=== PATIENT | female | born 1990 | race Caucasian/White ===

== ENCOUNTER 2017-10-14 07:00 | Inpatient (IN) | payer OTHER ==
[~2017-10-14] VITALS: Ht 160 cm; Wt 13.2 kg
[~2017-10-14 07:00] MED LIST: LOSARTAN POTASS25 M1 PO; METFORMIN HCL1000 M1 PO; ROBITUSSIN W/CO10 ML PO; SUPER B COMPLE150 MG; SYNTHROID50 MCG PO; VITAMIN D400 UNI1; ZITHROMAX Z-PA250 M1 PO
[2017-12-04] MEDS ORDERED: VITAMIN D250000 UNIT PO (11:22)
[2017-12-04] MEDS ORDERED: LEXAPRO10 M1 PO (11:23)
--- NOTE | 2017-12-09 14:16 | Admission Core Measures ---
Acute Coronary Syndrome (CM) ACS Core Measures Acute Coronary Syndrome Diagnosis No Congestive Heart Failure (NEW) CHF Core Measures Congestive Heart Failure Diagnosis No Cerebrovascular Accident CVA Core Measures CVA/TIA Diagnosis No Venous Thromboembolism VTE Core Kendall (View Protocol) VTE Risk Factors Surgery No Mechanical VTE Prophylaxis d/t N/A MechProphylax Ordered No VTE Pharm Prophylaxis d/t NA PharmProphylax ordered Problem List As ranked by this Provider includes Assessment & Plan 1. S/P laparoscopic sleeve gastrectomy 2. Hypothyroidism 3. Hypertension 4. Diabetes 5. Morbid obesity HOME MEDS Home Med List Ergocalciferol (Vitamin D2) (Vitamin D2) 50,000 UNIT CAPSULE 1 CAP PO QW SUPPLEMENT (Reported) Escitalopram Oxalate (Lexapro) 10 MG TABLET 1 TAB PO DAILY ANXIETY (Reported) Levothyroxine Sodium (Synthroid) 50 MCG TABLET 1 TAB PO DAILY REPLACEMENT ( Reported) Losartan Potassium 25 MG TABLET 1 TAB PO DAILY HTN (Reported) Metformin HCl 1,000 MG TABLET 2 TAB PO BID DM (Reported)
--- NOTE | 2017-12-09 14:16 | Operative Report ---
Operative/Inv Procedure Report Surgery Date: 12/09/17 Name of Procedure: Laparoscopic Sleeve Gastrectomy Pre-Operative Diagnosis: Morbid Obesity BMI 57, MARYSOL, HTN, DM, Hypothyroid Post-Operative Diagnosis: Same Estimated Blood Loss: less than 50ml Surgeon/Salesperson New Cars: Sha Shahid DO Anesthesia: general endotracheal tube IV Fluids: 1000 cc Drains: None Specimens: Stomach Complications: None Condition: Stable Operative Indication: This is a 26-year-old female that presented to the office for workup for bariatric surgery. After appropriate workup was completed I discussed with the patient the band, the sleeve, and the gastric bypass. The patient chose to undergo a sleeve gastrectomy. All risks including but not limited to bleeding, infection, leak, stricture, injury to surrounding bowel/esophagus/stomach/liver/ spleen, long-term reflux, DVT/PE, and mortality of 04/999 patients were discussed in detail. The patient understood everything and decided to proceed. Operative/Procedure Note Note: The patient was brought to the operating room and placed on the operating room table in supine position. Venodyne stockings were placed and adequate general endotracheal anesthesia was obtained. The patient was prepped and draped in standard surgical fashion. Began the procedure by making a 2 cm transverse incision supraumbilically and slightly to the left of the midline. Then using a 12 mm clear Visiport and a 10 mm 0 laparoscope, the abdominal cavity was accessed. Great care was taken to go through the anterior rectus sheath, the posterior rectus sheath, and through the peritoneum. Once we entered the peritoneum the abdominal cavity was insufflated to 15 mmHg. Upon initial examination no obvious gross pathology was seen. Accessory trocars were placed, 5 mm in the epigastrium for the Ramila liver retractor. The retractor was inserted and the liver was retracted anteriorly exposing the hiatus, no hiatal hernia was seen. 5 mm ports were placed in the right and left upper quadrant, a 5 mm left lateral port, and a 15 mm right lateral port. Began the procedure by mobilizing the greater curvature of the stomach approximately 7 cm from the pylorus. Once the retrogastric space was reached the whole greater curvature was mobilized maintaining hemostasis using Harmonic scalpel. Full hiatal dissection was performed, no hiatal hernia was seen. Posterior adhesions were taken down using Harmonic scalpel as well. Once the stomach was adequately mobilized a 38 Danish bougie was inserted and placed along the lesser curvature of the stomach. Once the bougie was in the appropriate position we began creating our sleeve, two 60 mm black staple loads with seamguard followed by two 60 mm purple staple loads with seamguard as well and finished with 45 mm purple load plain. Great care was taken to leave ample room at the incisura angularis, to prevent any twisting or kinking of the sleeve, to stay lateral to the esophagogastric fat pad, and to do a full fundal excision. At the completion of the staple line the staple line was examined, it appeared intact and no obvious bleeding was noted. The bougie was removed, the sleeve was lying nicely without any twisting or kinking. The resected stomach was removed through the right lateral port site. The port and the left upper quadrant were irrigated until clear. All ports were removed under direct visualization no obvious bleeding was noted. The 15 mm port site fascia was closed using 0 Vicryl suture. The skin was closed using 4-0 Monocryl. Steri-Strips and dressings were placed. The patient was successfully extubated and transferred to the recovery room in stable condition. The patient tolerated the procedure well with no complications. Findings: No hiatal hernia, 38 Fr bougie CC: Terrie Guan APRN
--- NOTE | 2017-12-09 14:23 | Surg Short-stay <48hrs Dis Sum ---
Visit Information Visit Dates Admission Date: 12/09/17 Discharge Date: 12/10/17 Surgical Short Stay DC Summary Admission Diagnosis: Morbid Obesity (BMI 57), MARYSOL, HTN, DM, Hypothyroidism Final Diagnosis: Morbid Obesity (BMI 57), MARYSOL, HTN, DM, Hypothyroidism Procedure(s): Surgery Date: 12/09/17 Name of Procedure: Laparoscopic Sleeve Gastrectomy Summary/Significant Findings: Electively scheduled laparoscopic sleeve gastrectomy by on 12/09/17 for history of morbid obesity (BMI 57), MARYSOL, HTN, DM, and hypothyroidism. Started on a stage 1 bariatric diet post-operatively. Pain control transitioned from iv to oral medication as able. Accuchecks continued every 6 hours, while her home metformin was held. Her losartan was also held, while her blood pressure was monitored post-operatively. Lovenox teaching was done prior to discharge home, as indicated by her pre-operative risk assessment. Condition at Discharge: stable Discharge Disposition: home or self care Discharge instructions provided to patient/family: Yes Post discharge follow-up plan: one week follow up with lovenox teaching done prior to discharge home Copies to: Amy Chambers APRN
--- NOTE | 2017-12-09 14:26 | Patient Discharge Instructions ---
Discharge Instructions General Discharge Information You were seen/treated for: Morbid Obesity (BMI 57), MARYSOL, HTN, DM, Hypothyroidism You had these procedures: Surgery Date: 12/09/17 Name of Procedure: Laparoscopic Sleeve Gastrectomy Watch for these problems: fever>101.3, increased pain, redness/swelling/drainage, shortness of breath, chest pains, dizziness No bath, but you may shower: Yes Other wound care: ok to remove bandaids. leave white steri strips in place. keep incisions clean & dry. Diet Continue normal diet: No Recommended Diet: Bariatric Additional DIET Information: weekly bariatric stage diet advancement as tolerated, as directed Activity Full Activity/No Limits: No Activity Self Limited: Yes Pounds, do NOT lift more than: 10 Other activity limits: no heavy lifting. no strenuous activity. Additional ACTIVITY Info: walk frequently Acute Coronary Syndrome Inclusion Criteria At DC or during hospital stay patient has or had the following: ACS DIAGNOSIS No Discharge Core Measures Meds if any: Prescribed or Continued at Discharge Meds if any: NOT Prescribed or Continued at Discharge Congestive Heart Failure Inclusion Criteria At DC or during hospital stay patient has or had the following: CHF DIAGNOSIS No Discharge Core Measures Meds if any: Prescribed or Continued at Discharge Meds if any: NOT Prescribed or Continued at Discharge Cerebrovascular accident Inclusion Criteria At DC or during hospital stay patient has or had the following: CVA/TIA Diagnosis No Discharge Core Measures Meds if any: Prescribed or Continued at Discharge Meds if any: NOT Prescribed or Continued at Discharge Venous thromboembolism Inclusion Criteria VTE Diagnosis No VTE Type NONE VTE Confirmed by (Test) NONE Discharge Core Measures - Per Current guidelines, there needs to be overlap - treatment for the first 5 days of Warfarin therapy. - If discharged on Warfarin prior to 5 days of - overlap therapy, the patient will need to be - assessed for post discharge needs including - *Post discharge parental anticoagulation - *Warfarin and/or parental anticoagulation education - *Follow up date to check INR post discharge At least 5 days overlap therapy as Inpatient No Meds if any: Prescribed or Continued at Discharge Note: Overlap Therapy is Warfarin and Anticoagulant Meds if any: NOT Prescribed or Continued at Discharge
[2017-12-09] MEDS ORDERED: HYCET 7.5 MG-3473 ML PO (14:29)
[2017-12-09] MEDS ORDERED: PROTONIX40 M3 PO (14:29)
[2017-12-09] MEDS ORDERED: LOVENOX40 MG/0.1 SC (14:29)
[2017-12-09 17:00] VITALS: BP 132/77
--- NOTE | 2017-12-09 17:06 | PN- Student ---
Subjective Subjective: Pt states she is not feeling well. Has 8/10 crampy abdominal pain. Also complaining of pain to her mid-lower back that she says is separate from the abdominal pain. Believes it may be gas pain. Pt ambulated without difficulty. She has not voided. Denies any nausea or vomiting and says she is hungry. Denies any CP, SOB, difficuly breathing, headache or dizziness. Objective Objective: Vitals: See EMR General: Middle aged female, lying in bed, appears to be in slight discomfort but is in NAD. Cardio: S1 and S2 heard. Regular rate and rhythm. No murmurs, rubs or gallops. Pulm: Breath sounds auscultated in anterior and lateral lung rolon. No wheezes, rhonchi, rales or crackles. Abdomen: All dressing sites are clean, dry and intact. Abdomen is soft and non- distended. Bowel sounds were auscultated. Mildly tender to light palpation. Extremities: Bilateral calves are soft and non-tender to palpation. PT pulses are palpable. Gross motor and sensory function is intact and equal in the bilateral lower extremities. Results Results: Laboratory Tests 12/09/17 1047: Urine Test NEGATIVE Assessment/Plan Assessment: Pt is a 26 yo F POD#0 s/p laparoscopic sleeve gastrectomy due to morbid obesity, HTN and DM. Pt with significant gas pain that is currently uncontrolled Plan: Continue to monitor and treat pain. Complete remaining doses of Clindamycin. Hep SQ for DVT prophylaxis. Started on stage 1 bariatric diet. Pt due to void, monitor for post-operative voiding. NPO after midnight for possible UGI series. Plan for teaching for lovenox use. Hold metformin and losartan and continue other home medications. Encourage ambulation and incentive spirometry use. Follow up with morning labs and UGI. Will discuss with attending and surgical PA staff.
[2017-12-09 20:58] VITALS: BP 118/90
[2017-12-10 06:33] VITALS: BP 114/78
[2017-12-10 08:29] LABS: ABSOLUTE BASOPHIL COUNT 0 /CUMM (0.0-0.2); ABSOLUTE EOSINOPHIL COUNT 0 /CUMM (0.0-0.7); ABSOLUTE GRANULOCYTE CT 10.6 /CUMM (1.4-6.5); ABSOLUTE LYMPH COUNT 0.5 /CUMM (1.2-3.4); ABSOLUTE MONOCYTE COUNT 0.3 /CUMM (0.10-0.60); BASOPHIL % 0.1 % (0.0-2.0); EOSINOPHIL % 0 % (0-5); HEMATOCRIT 37.1 % (37-47); MEAN CORPUSCULAR HGB 29.5 PG (27.0-31.0); MEAN CORPUSCULAR HGB CONC 34.2 G/DL (33.0-37.0); MEAN CORPUSCULAR VOLUME 86.3 FL (81.0-99.0); MEAN PLATELET VOLUME 9.1 FL (7.4-10.4); PLATELET COUNT 364 /CUMM (130-400); RBC DISTRIBUTION WIDTH 13.1 % (11.5-14.5); WHITE BLOOD CELL COUNT 11.3 /CUMM (4.8-10.8)
[2017-12-10 09:11] LABS: GRANULOCYTE % 93.4 % (42.2-75.2)
--- NOTE | 2017-12-10 10:26 | PN- Bariatrics ---
See Addendum Subjective Subjective: Awake, alert complaining of mild nausea since surgery ambulating without difficulty no flatus yet or bm pain is tolerable Objective Vital Signs and I&Os Vital Signs Date Time Temp Pulse Resp B/P B/P Pulse O2 O2 Flow FiO2 Mean Ox Delivery Rate 12/10 08 96 Room Air 12/10 0633 97.6 64 18 114/78 97 12/10 06 96 Room Air 12/09 2200 98 Room Air 12/09 2058 98.1 64 16 118/90 98 Room Air 12/09 2046 Room Air Room Air 12/09 1800 96 Room Air 12/09 1700 97.6 78 16 132/77 96 Room Air Intake & Output 12/10 1600 12/10 0000 12/09 1600 12/09 0000 Intake Total 260 1685 1365 Output Total 0 1000 800 Balance 260 685 565 Intake, IV 260 1670 1145 Intake, Oral 0 15 220 Number 0 0 0 Bowel Movements Output, Urine 0 1000 800 Patient 29 lb 2.99 oz Weight Weight Bed scale Measurement Method Physical Exam: vss, afebrile General: alert and oriented times three Chest: clear anteriorly bilaterally, RRR Abd: softly distended, hypoactive bs Wds; all dressed, dry Ext: warm, no edema, no calf tenderness Assessment/Plan Assessment/Plan 26yo female s/p lap sleeve gastrectomy pod 1 npo/ivf UGI this am restart stage one if UGI WNL pain management lovenox fu accuchecks Core Measures Venous Thromboembolism VTE Risk Factors Surgery No Mechanical VTE Prophylaxis d/t N/A MechProphylax Ordered No VTE Pharm Prophylaxis d/t NA PharmProphylax ordered
--- NOTE | 2017-12-10 12:42 | RADIOLOGY REPORT ---
EXAMINATION: FLUOROSCOPY UPPER GI WITH GASTROGRAFIN WITH KUB CLINICAL INFORMATION: 1 day status post gastric sleeve procedure. Postoperative evaluation. Rule out leak/obstruction status post sleeve gastrectomy. COMPARISON: Upper GI exam dated 10/06/2017. TECHNIQUE: A preliminary flow worker view of the abdomen was performed on 2 images. A limited Gastrografin upper GI study was performed using 30 ml of Gastroview with the patient in the semiupright position. Multiple (6) spot films and one cine fluoroscopy run were acquired. FINDINGS: The preliminary flow worker view of the abdomen demonstrates postsurgical suture line in the epigastric region. Normal bowel gas pattern is seen without abnormal bowel distention noted. Esophageal distensibility and motility is normal. The GE junction is located below the level of the diaphragm and no GE reflux seen. The remnant gastric pouch is normal with no abnormal distention or contrast leak seen. There is prompt emptying of contrast into the duodenum, which is unremarkable in appearance. FLUOROSCOPY TIME: 0.28 minutes. IMPRESSION: Unremarkable examination with no evidence of contrast leak or gastric outlet obstruction.
[2017-12-10 14:15] VITALS: BP 141/77
[2017-12-10 14:30] VITALS: BP 140/60
== END 2017-12-10 22:10 | DRG 403 ==
LOC: 2NB 12-09 10:37 → SDA 12-09 10:37 → ENRESERV 12-09 14:45 → ENTRNSPT 12-09 15:56 → EDTRNSPTSTS 12-09 16:12 → 2NB 12-09 16:19 → CMPTRNSPT 12-09 16:28 → ENPENDDIS 12-10 20:41 → 2NB 12-10 22:10
PROVIDERS: Physician Assistant
PROC: 3E0T3BZ Introduction of Anesthetic Agent into Peripheral Nerves and Plexi, Percutaneous Approach (ICD-10-PCS; principal; 2017-12-09)
PROC: 0DB64Z3 Excision of Stomach, Percutaneous Endoscopic Approach, Vertical (ICD-10-PCS; principal; 2017-12-09)
DX: E66.01 Morbid (severe) obesity due to excess calories (principal); Z68.43 Body mass index [BMI] 50.0-59.9, adult; E03.9 Hypothyroidism, unspecified; G47.33 Obstructive sleep apnea (adult) (pediatric); E11.9 Type 2 diabetes mellitus without complications; I10 Essential (primary) hypertension
CPT/HCPCS: 2NBP; 36592; 74240; 81025; 82436; J0131; J1100; J1644; J2405; J7042